=== PATIENT | female | born 1950 | race Caucasian/White ===

== ENCOUNTER 2018-01-04 03:51 | Observation (INO) | payer MEDICARE ==
[~2018-01-04] VITALS: Ht 160 cm; Wt 131.4 kg
[2018-01-04] VITALS (7 sets, daily range): BP systolic 115–141; BP diastolic 51–71; Ht 160 cm; Wt 131.4 kg
--- NOTE | ~2018-01-04 | EC ---
PATIENT:HOUSTON DOSS DATE OF SERVICE: 01/04/18 SEX: F MEDICAL RECORD: [id number] DATE OF : 50 LOCATION:D.M2 D.212 AGE OF PATIENT: 67 ADMISSION DATE: 01/04/18 REFERRING PHYSICIAN: INTERPRETING PHYSICIAN: BENEDICT LOWERY MD ECHOCARDIOGRAM REPORT ECHO CHARGES 4 ECHO COMPLETE Date: 01/04/18 CLINICAL DIAGNOSIS: PALPITATIONS ECHOCARDIOGRAPHIC MEASUREMENTS (adult normal given) AC root (d.<3.7cm) 2.5 cm LV Septum d (<1.2 cm> 1.0 cm Valve Excursion 1.2 cm LV Septum (systole) 1.2 cm Left Atria (s.<4.0cm> 3.6 cm LVPW d(<1.2cm) 0.7 cm RV (d.<2.3cm) 2.9 cm LVPW (sytole) 0.8 cm LV diastole(<5.6CM) 5.2 cm MV E-F(>70mm/sec) cm LV systole 4.4 cm LVOT Diameter 1.9 cm MV exc.(>10mm) cm Est.ejection fraction (50-75%) % DOPPLER: LVIT cm/sec A 111 cm/sec E 55 cm/sec LA cm/sec RVSP 19.1 mmHg LVOT 161 cm/sec AOP1/2T m/s Asc. Ao 159 cm/sec RVOT 92 cm/sec RA cm/sec PA 113 cm/sec AV Gradient Peak 10.2 mmHg AV Mean 7.1 mmHg AV Area 2.8 cm MV Gradient Peak 5.1 mmHg MV Mean 2.3 mmHg MV Area cm COMMENTS: Fashion Photographer: Jaya SIM Douper: 4 Dr. Lowery TAPE# PACS Pericardial Effusion N DATE OF SERVICE: PROCEDURE: Transthoracic echocardiogram. FINDINGS: 1. Left ventricle is hyperdynamic, ejection fraction of 65%. Normal size, shape, structure, and function. 2. The right ventricle is normal size, shape, structure, and function. 3. The left atrium is normal. 4. The mitral valve is shown to have trace mitral regurgitation. ECHOCARDIOGRAM REPORT [id number] [place] DOSS 5. Tricuspid valve is structurally normal with trace tricuspid regurgitation. RVSP is normal. Of note is hyperdynamic function of the right ventricle also. CONCLUSIONS: The patient has a normal echocardiogram with the exception of hyperdynamic function. TRANSINT:[id number] Voice Confirmation ID: [id number] DOCUMENT ID: [id number] BENEDICT LOWERY MD at 1348 CC: [id number] DICTATION DATE: 01/05/18 1006 FRAME FIXER: 01/05/18 1233 DIS IN 01/05/18 [place] [id number] [place] [id number]
[2018-01-04 04:48] LABS: BASOPHILS 0.1 % (0-2); EOSINOPHILS 0 % (0-7); HEMATOCRIT 43.1 % (36.0-48.0); HEMOGLOBIN 14.7 g/dL (12-16); IMMATURE GRANULOCYTES 0.3 % (0-5); LYMPHOCYTES 14.4 % (15-50); MCH 30.8 pg (26.0-34.0); MCHC 34.1 g/dL (31.0-37.0); MCV 90.2 fL (80.0-100.0); MEAN PLATELET VOLUME 9.8 fL (7.4-10.4); MONOCYTES 11.8 % (2-11); NEUTROPHILS 73.4 % (40-80); PLATELET COUNT 208 10x3/uL (130-400); RBC 4.78 10x6/uL (4.00-5.40); RDW 13.7 % (11.5-14.5)
[2018-01-04 05:01] LABS: ALBUMIN 3.5 g/dL (3.4-5.0); ALKALINE PHOSPHATASE 87 U/L (46-116); ALT (SGPT) 55 U/L (10-68); BILIRUBIN - TOTAL 0.23 mg/dL (0.2-1.3); CALC OSMOLALITY 287 mosm/kg (275-300); CALCIUM 9.5 mg/dL (8.5-10.1); CHLORIDE - SERUM 106 mmol/L (98-107); CREATININE - SERUM 1.2 mg/dL (0.6-1.3); GLUCOSE 190 mg/dL (74-106); POTASSIUM - SERUM 3.9 mmol/L (3.5-5.1); PROTEIN - SERUM 7.1 g/dL (6.4-8.2); SODIUM 141 mmol/L (136-145); UREA NITROGEN 18 mg/dL (7-18); eGFR NON AFRICAN AMERICAN 47 mL/min (90-120)
[2018-01-04 05:18] LABS: APPEARANCE CLEAR (CLEAR); BACTERIA FEW /hpf (NONE SEEN); BILIRUBIN NEGATIVE (NEGATIVE); COLOR YELLOW (YELLOW); EPITHELIAL CELLS RARE /hpf (0-5); GLUCOSE NEGATIVE (NEGATIVE); KETONE NEGATIVE (NEGATIVE); NITRITE NEGATIVE (NEGATIVE); PROTEIN NEGATIVE (NEGATIVE); RED CELLS - URINE NONE SEEN /hpf (0-5); SPECIFIC GRAVITY 1.015 (1.005-1.020); UROBILINOGEN NORMAL (NORMAL)
[2018-01-04 05:23] LABS: UDS - AMPHET NEGATIVE QUAL (NEGATIVE); UDS - BARB NEGATIVE QUAL (NEGATIVE); UDS - BENZO NEGATIVE QUAL (NEGATIVE); UDS - COCAINE NEGATIVE QUAL (NEGATIVE); UDS - OPIATE NEGATIVE QUAL (NEGATIVE); UDS - PCP NEGATIVE QUAL (NEGATIVE); UDS - THC NEGATIVE QUAL (NEGATIVE)
[2018-01-04 05:25] LABS: CKMB 2.4 U/L (0.0-3.6); CREATINE KINASE 474 UL (21-215); LIPASE 129 U/L (73-393); MAGNESIUM - SERUM 1.8 mg/dL (1.8-2.4); THYROID STIMULATING HORMONE 5.32 uIU/mL (0.36-3.74)
[2018-01-04 05:31] LABS: TROPONIN-I < 0.017 ng/mL (0.000-0.060)
[2018-01-04 07:47] LABS: CKMB 2.6 U/L (0.0-3.6); CREATINE KINASE 550 UL (21-215); TROPONIN-I < 0.017 ng/mL (0.000-0.060)
[2018-01-05] VITALS: BP 150/80
[2018-01-05 04:44] VITALS: BP 137/74
[2018-01-05 08:23] VITALS: BP 143/58
[2018-01-05 12:00] VITALS: BP 150/78
[2018-01-05] MEDS ORDERED: ASPIRIN325 MG PO (12:27)
== END 2018-01-05 15:00 | disposition home or self-care (01) ==
LOC: D.ER 03:51 → D.M2 07:12 → OBSVTIME 07:12 → D.M2 01-05 15:00
PROVIDERS: Family Medicine
DX: R55 Syncope and collapse (principal); R00.2 Palpitations; E03.9 Hypothyroidism, unspecified; Z59.0 Homelessness